=== PATIENT | male | born 2000 | race Caucasian/White ===

== ENCOUNTER 2020-08-06 04:35 | Inpatient (IN) | payer OTHER ==
[~2020-08-06] VITALS: Ht 177.8 cm; Wt 63.5 kg
[2020-08-06 05:15] LABS: BASOPHIL % 0.6 % (0-2); PLATELET COUNT 398 x10^3mcL (130-400)
[2020-08-06 05:21] LABS: RED CELL DISTRIBUTION WIDTH 16.8 % (11.5-14.5)
[2020-08-06 05:25] LABS: CALCIUM 9.4 mg/dL (8.5-10.1); CARBON DIOXIDE 23.6 mmol/L (21-32); CHLORIDE SERUM 101 mmol/L (98-107); CREATININE SERUM 1.5 mg/dL (0.7-1.3); GFR1 > 60 mL/min; GLUCOSE SERUM 151 mg/dL (74-106); POTASSIUM SERUM 3.7 mmol/L (3.5-5.1); SODIUM SERUM 140 mmol/L (136-145)
[2020-08-06 05:31] LABS: ALBUMIN 4.4 g/dL (3.4-5.0); ALKALINE PHOSPHATASE 245 U/L (46-116); ALT/SGPT 33 U/L (16-63); AST/SGOT 59 U/L (15-37); BILIRUBIN TOTAL 0.33 mg/dL (0.20-1.00)
[2020-08-06 05:52] LABS: AMPHETAMINE QUAL UR NONE DETECTED (See below)
[2020-08-06 08:15] VITALS: BP 134/87
[2020-08-06 08:31] VITALS: BP 126/81
[2020-08-06 10:00] VITALS: BP 119/64
[2020-08-06 12:00] VITALS: BP 117/63
[2020-08-06 15:58] LABS: BILIRUBIN DIRECT 0.13 mg/dL (0.0-0.2); BILIRUBIN TOTAL 0.5 mg/dL (0.20-1.00); TOTAL PROTEIN, SERUM 6.2 g/dL (6.4-8.2)
[2020-08-06 15:59] LABS: ALBUMIN 3.2 g/dL (3.4-5.0)
[2020-08-06 16:00] VITALS: BP 121/74
[2020-08-06 20:00] VITALS: BP 117/69
== END 2020-08-06 20:45 | disposition left against medical advice (07) | DRG 812 ==
LOC: ED 04:35 → EDBD 04:35 → IC 06:11
PROVIDERS: Emergency Medicine; ADMIT Student in an Organized Health Care Education/Training Program; ATTEND Student in an Organized Health Care Education/Training Program
DX: T40.2X1A Poisoning by other opioids, accidental (unintentional), initial encounter (principal); G92 Toxic encephalopathy; F32.9 Major depressive disorder, single episode, unspecified; F41.9 Anxiety disorder, unspecified; R58 Hemorrhage, not elsewhere classified; Z53.29 Procedure and treatment not carried out because of patient's decision for other reasons; Y92.89 Other specified places as the place of occurrence of the external cause; Z83.3 Family history of diabetes mellitus; Z80.8 Family history of malignant neoplasm of other organs or systems
CPT/HCPCS: 36600; G0378; G0480; J1630; J2250; J2310; J7030; Q0092

== ENCOUNTER 2020-08-07 03:19 | Emergency (ER) | payer OTHER ==
[~2020-08-07] VITALS: Ht 180.3 cm; Wt 74.8 kg
[2020-08-07 03:23] VITALS: Ht 180.3 cm; Wt 74.8 kg
[2020-08-07 04:03] LABS: CALCIUM 9.4 mg/dL (8.5-10.1); CARBON DIOXIDE 20.9 mmol/L (21-32); CHLORIDE SERUM 101 mmol/L (98-107); CREATININE SERUM 1.1 mg/dL (0.7-1.3); GFR1 > 60 mL/min; GLUCOSE SERUM 101 mg/dL (74-106); POTASSIUM SERUM 3.7 mmol/L (3.5-5.1); SODIUM SERUM 138 mmol/L (136-145)
[2020-08-07 04:08] LABS: BASOPHIL % 0.4 % (0-2); PLATELET COUNT 352 x10^3mcL (130-400); RED CELL DISTRIBUTION WIDTH 16.7 % (11.5-14.5)
[2020-08-07 04:10] LABS: ALBUMIN 4.3 g/dL (3.4-5.0); ALKALINE PHOSPHATASE 213 U/L (46-116); ALT/SGPT 23 U/L (16-63); AST/SGOT 110 U/L (15-37); BILIRUBIN TOTAL 0.57 mg/dL (0.20-1.00)
[2020-08-07 04:11] LABS: TOTAL PROTEIN, SERUM 8.6 g/dL (6.4-8.2)
[2020-08-07 06:20] VITALS: BP 139/90
== END 2020-08-07 06:20 | disposition home or self-care (01) ==
LOC: ED 03:19
PROVIDERS: Emergency Medicine
DX: R00.0 Tachycardia, unspecified (principal); F19.10 Other psychoactive substance abuse, uncomplicated; F15.10 Other stimulant abuse, uncomplicated; F17.200 Nicotine dependence, unspecified, uncomplicated
CPT/HCPCS: J2060; J2405; J3475

== ENCOUNTER 2020-09-28 00:54 | Emergency (ER) | payer OTHER | END 2020-09-28 01:03 | disposition left against medical advice (07) | LOC: ED 00:54 | DX: Z53.21 Procedure and treatment not carried out due to patient leaving prior to being seen by health care provider (principal) ==